=== PATIENT | male | born 1985 | race African-American/Black ===

== ENCOUNTER 2017-11-23 13:46 | Emergency (ER) | payer OTHER ==
[~2017-11-23] VITALS: Ht 193 cm; Wt 131.1 kg
[~2017-11-23 13:46] MED LIST: MIRALAX17 GM PO; NOHOMEMEDS; ZOFRAN ODT4 MG PO
[2017-11-23 14:29] LABS: HEMOGLOBIN 14.1 G/DL (12.5-16.6); MCH 24.1 PG (29.0-34.0); MCV 75.2 FL (86-99); PLATELET COUNT 239 K/uL (156-360); RBC DIS.WIDTH-CV 13.5 % (11.8-14.6); RED BLOOD COUNT 5.85 M/uL (4.00-5.50); WHITE BLOOD COUNT 8.6 K/uL (4.1-10.2)
[2017-11-23 14:42] LABS: CHLORIDE 104 mEq/L (99-109); POTASSIUM 3.6 mEq/L (3.7-5.4); SODIUM 138 mEq/L (136-147)
[2017-11-23 14:44] LABS: GLUCOSE 89 mg/dL (70-99)
[2017-11-23 14:48] LABS: CREATININE 1.1 mg/dL (0.6-1.3); GFR ESTIMATE (CALCULATED) > 59 mL/min/ (58.99-99999)
[2017-11-23 14:51] LABS: UREA NITROGEN (BUN) 10 mg/dL (9-23)
[2017-11-23 14:55] LABS: MAGNESIUM 2.1 mg/dL (1.3-2.7)
[2017-11-23 15:14] LABS: TROP-I INTERPRETATION NEGATIVE; TROPONIN-I < 0.01 ng/mL (0.0-0.30)
[2017-11-23] MEDS ORDERED: PROTONIX40 MG PO (16:03)
[2017-11-23 16:43] VITALS: BP 121/74
== END 2017-11-23 16:43 | disposition home or self-care (01) ==
LOC: EME 13:46
DX: R00.2 Palpitations (principal); E87.6 Hypokalemia; F17.200 Nicotine dependence, unspecified, uncomplicated
CPT/HCPCS: 71046; 80048; 83735; 84484; 85027; 93005; 99281; 99285